=== PATIENT | male | born 1980 | race African-American/Black ===

== ENCOUNTER 2023-09-29 19:19 | Emergency (ER) | payer OTHER, SELFPAY ==
[2023-09-29 20:08] VITALS: BP 133/87; PULSE 94; RESP 18; TEMP 36.6; O2SAT 96
[2023-09-29 20:57] VITALS: BP 224/102; PULSE 100; RESP 17; TEMP 36.9; O2SAT 98
--- NOTE | 2023-09-29 22:50 | ED.SKABFB ---
HPI - Skin/Abscess/Foreign Bdy General Chief complaint: Skin/Abscess/Foreign Body Stated complaint: knot on back of leg Time Seen by Provider: 09/29/23 22:23 Source: patient Mode of arrival: ambulatory Limitations: no limitations History of Present Illness HPI narrative: This is a 43-year-old male that presents to the emergency department for an abscess to the left lower extremity. Ongoing over the last couple of days. Denies fevers or drainage. Related Data Allergies Allergy/AdvReac Type Severity Reaction Status Date / Time Sulfa (Sulfonamide Allergy Hives Verified 09/29/23 22:03 Antibiotics) Review of Systems Review of Systems: CONSTITUTIONAL: Denies fever SKIN: Reports redness and swelling All systems reviewed & are unremarkable except as noted in HPI and below PMFSH Past Medical History Medical History (Updated 09/30/23 @ 00:31 by Grace Keys PA-C) No active medical problems Social History Social History (Updated 09/29/23 @ 22:51 by Grace Keys PA-C) Substance use: never Exam Narrative: GENERAL: Well-appearing, well-nourished, and in no acute distress. HEAD: Normocephalic, atraumatic. EYES: EOMI. EXTREMITIES: Normal range of motion. Left inner thigh with small to moderate size area of induration with a small area of central fluctuance SKIN: Warm, dry, no rash. NEURO: No focal deficits. Alert and oriented x3. PSYCH: Normal mood and affect Course Vital Signs Vital signs: Vital Signs Temperature 97.9 F 09/29/23 20:08 Pulse Rate 94 09/29/23 20:08 Respiratory Rate 18 09/29/23 20:08 Blood Pressure 133/87 09/29/23 20:08 Pulse Oximetry 96 09/29/23 20:08 Oxygen Delivery Room Air 09/29/23 20:08 Temperature 98.4 F 09/29/23 20:57 Pulse Rate 100 09/29/23 20:57 Respiratory Rate 17 09/29/23 20:57 Blood Pressure 153/96 H 09/30/23 00:26 Pulse Oximetry 98 09/29/23 20:57 Oxygen Delivery Room Air 09/29/23 20:08 Procedures Abscess I/D lower extremity: Date of Incision: 09/30/23 Time of Incision: 00:39 Side (if applicable): left Local Anesthetic: lidocaine 1% and with epi Amount of anesthesia used (mL): 2 Technique: incised with #11 blade Irrigation: Yes Packing used?: none I&D Results: Pus and Blood MDM - Skin/Abscess/Foreign Bdy MDM Narrative Medical decision making narrative: Patient presents to the emergency department for an abscess to the left inner thigh. This was successfully drained. Patient will be started on oral antibiotics for mild surrounding cellulitis. He was educated on further wound care. He is to follow up with primary provider. He was given warnings to return to the ER Differential Diagnosis Differential diagnosis: Likely abscess of skin or subcutaneous tissue and other (cellulitis) Critical Care Time Critical Care Time Critical Care Time: No Discharge Plan Discharge Clinical Impression: Abscess of skin or subcutaneous tissue Qualifiers: Site of cutaneous abscess: extremity Site of cutaneous abscess of extremity: lower extremity Laterality: left Qualified Code(s): L02.416 - Cutaneous abscess of left lower limb Patient Disposition: Home, Self-Care Condition: Stable Instructions: Antibiotic Form, Abscess (ED) Additional Instructions: Return if symptoms worsen or concerns: any increase in redness, swelling, pain or fever over 101 Take antibiotics as directed. Clean wound with mild soapy water. Apply antibiotic ointment and clean dressing at least three times daily. Warm compresses 3 times a day for 20 minutes each Follow up with primary care in the next 2-3 days for re-evaluation Prescriptions: New doxycycline hyclate 100 mg tablet 100 mg PO BID 7 Days Qty: 14 0RF Follow-up/Referrals: UNKNOWN,DOCTOR [Primary Care Provider] -
[2023-09-30 00:26] VITALS: BP 153/96
== END 2023-09-30 00:40 | disposition home or self-care (01) ==
PROVIDERS: Emergency Provider Physician Assistant
DX: L02.416 Cutaneous abscess of left lower limb (principal)
CPT/HCPCS: 10060; 87070; 87205; 99283